=== PATIENT | female | born 1965 | race Caucasian/White ===

== ENCOUNTER 2020-06-22 07:19 | Emergency (ER) | payer BC ==
[~2020-06-22] VITALS: Ht 152.4 cm; Wt 40.4 kg
[2020-06-22 07:31] VITALS: Ht 152.4 cm; Wt 40.4 kg
[2020-06-22 08:23] VITALS: BP 117/70
== END 2020-06-22 09:57 | disposition home or self-care (01) ==
LOC: ED 07:19
DX: L97.321 Non-pressure chronic ulcer of left ankle limited to breakdown of skin (principal); L08.9 Local infection of the skin and subcutaneous tissue, unspecified; Z90.89 Acquired absence of other organs; Z41.1 Encounter for cosmetic surgery
CPT/HCPCS: 82962